=== PATIENT | male | born 1975 | race Caucasian/White ===

== ENCOUNTER 2018-09-03 07:46 | Emergency (ER) | payer OTHER ==
[2018-09-03 07:51] VITALS: BP 133/82; PULSE 88; RESP 20; TEMP 98.2; O2SAT 98
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
--- NOTE | 2018-09-03 11:59 | RAD ---
PROCEDURE: Right Hand Radiographs. HISTORY: right thumb pain COMPARISON: None. TECHNIQUE: 3 views obtained. FINDINGS: BONES: Normal. No fracture. JOINTS: Normal. No osteoarthritic changes. SOFT TISSUES: Normal. OTHER FINDINGS: None. IMPRESSION: Normal right hand radiographs.
== END 2018-09-03 10:18 | disposition home or self-care (01) ==
LOC: C.ER 07:46
DX: M79.641 Pain in right hand (principal)